=== PATIENT | female | born 1990 | race Caucasian/White ===

== ENCOUNTER → 2017-06-11 | Outpatient (CLI) | payer OTHER ==
--- NOTE | 2017-06-11 15:24 | MAMMOGRAPHY REPORT ---
BILATERAL DIGITAL DIAGNOSTIC MAMMOGRAM TOMOSYNTHESIS WITH CAD AND TARGETED BILATERAL ULTRASOUND: 05/17 CLINICAL HISTORY: The patient reports a lump in her right axillary region for approximately 2-3 weeks . She also reports bilateral diffuse breast pain. She notes a family history of breast cancer, with her mother diagnosed at age 41 and aunt diagnosed at age 35. The patient's mother recently tested p ositive for the BRCA gene. TECHNIQUE: Breast tomosynthesis in addition to standard 2D mammography was performed. Current study was also evaluated with a Computer Aided Detection (CAD) system. Bilateral CC and MLO 2-D and tomosy nthesis images were obtained. COMPARISON: No prior exams were available for comparison. BREAST COMPOSITION: The tissue of both breasts is heterogeneously dense, which may obscure small mas ses. FINDINGS: Ultrasound was performed of both breasts including all 4 quadrants and subareolar regions. First, ultrasound was performed of the palpable lump in the right axillary region pointed out by th e patient. At the site of the palpable lump there is a small intradermal hypoechoic mass which measu res 5 x 5 mm. Given the intradermal location, the mass is benign and likely represents a sebaceous/e pidermal inclusion cyst. The remainder of the right breast demonstrates no suspicious masses or othe r suspicious sonographic abnormalities. Ultrasound of the left breast shows a lobulated hypoechoic s olid-appearing 12 x 12 x 7 mm mass in the left breast at 11:00, approximately 2 cm from the nipple. Given the patient's strong family history of premenopausal breast cancer, the decision was made to pe rform bilateral mammograms. Mammographically, there is an obscured lobulated 11 mm mass in the left slightly medial breast middle depth on the cc tomosynthesis images, which likely corresponds with the mass seen within the left 11:00 breast on ultrasound. The remainder of both breasts demonstrate no suspicious masses, calcifications, or areas of architectural distortion. IMPRESSION: ACR BI-RADS CATEGORY 4: SUSPICIOUS, TARGETED ULTRASOUND ACR BI-RADS CATEGORY 4: SUSPICIO US 1. Intradermal 5 mm hypoechoic mass at the site of the palpable right axillary lump. Given the intr adermal location, the mass is benign and likely represents a sebaceous/epidermal inclusion cyst. Rec ommend clinical follow-up. 2. Hypoechoic solid 12 mm mass in the left breast at 11:00. The mass is indeterminate and ultrasoun d-guided core needle biopsy is recommended for further evaluation. This may represent a fibroadenoma . 3. No mammographic or sonographic evidence of malignancy in the right breast. 4. Also recommend clinical follow-up for bilateral breast pain. A phone call was made to the physician's office to confirm faxed results were received. The patient has been verbally notified of the results. She tentatively scheduled the biopsy [facility]. Approximately 10% of breast cancers are not detected with mammography. A negative mammographic report should not delay biopsy if a clinically suggestive mass is present. Mindy Benitez M.D. ah/:06/11/2017 12:22:42 [employer]acer: Kristi CASTRO)(Nichole), [facility] letter sent: Abnormal 4/5 BI-RADS Code: ACR BI-RADS Category 4: Suspicious Ultrasound BI-RADS: ACR BI-RADS Category 4: Suspici ous
== END | disposition home or self-care (01) ==
LOC: C.MAMM 09:38
PROVIDERS: ATTEND Obstetrics & Gynecology
DX: N63.10 Unspecified lump in the right breast, unspecified quadrant (principal); N64.4 Mastodynia; Z80.3 Family history of malignant neoplasm of breast

== ENCOUNTER → 2017-08-17 | Outpatient (CLI) | payer OTHER | END | disposition home or self-care (01) | LOC: C.LABSPEC 18:33 | PROVIDERS: ATTEND Physician Assistant | DX: N89.8 Other specified noninflammatory disorders of vagina (principal) ==